=== PATIENT | female | born 1945 | race Hispanic/Latino ===

== ENCOUNTER 2019-08-19 05:53 | Inpatient (IN) | payer MEDICARE ==
[2019-08-19] MEDS ORDERED: ALBUTEROL INHALER 90MCG/INH IH ONE (06:06)
[2019-08-19] MEDS ORDERED: AZITHROMYCIN 500MG+NS 250ML 250 ML IV ONE (06:35)
[2019-08-19] MEDS ORDERED: CEFTRIAXONE SODIUM 1 GM ONE (06:35)
[2019-08-19] MEDS ORDERED: METHYLPREDNISOLONE SOD SUCC 125MG/2ML VIAL ONE (06:35)
[2019-08-19 07:09] LABS: BASOPHILS % (AUTO) 0.9 % (0.0-5.0); EOSINOPHILS % (AUTO) 3.9 % (0.0-8.0); HEMATOCRIT 38.2 % (36-48); LYMPHOCYTES % (AUTO) 40.1 % (21.0-51.0); MEAN CORPUSCULAR HGB CONC 32.5 g/dL (32.0-36.0); MEAN CORPUSCULAR VOLUME 92.5 fL (79-99); MONOCYTES % (AUTO) 9.7 % (3.0-13.0); NEUTROPHILS % (AUTO) 44.9 % (40.0-77.0); PLATELET COUNT (AUTO) 213 K/uL (130-400); RED BLOOD CELL COUNT(AUTO) 4.13 MIL/uL (4.00-5.50); RED CELL DISTRIBUTION WIDTH 13.9 % (11.0-15.5); WHITE BLOOD COUNT (AUTO) 6.5 K/uL (4.8-10.8)
[2019-08-19 07:19] LABS: CREATININE 0.8 mg/dL (0.5-1.5); INR 0.95 (0.85-1.15); PARTIAL THROMBOPLASTIN TIME 23.8 SEC (26.3-35.5); POTASSIUM 3.6 mmol/L (3.5-5.1); PROTHROMBIN TIME 10.3 SEC (9.6-11.6)
[2019-08-19 07:25] LABS: BILIRUBIN,TOTAL 0.3 mg/dL (0.2-1.0); TOTAL PROTEIN, SERUM 7.5 g/dL (6.0-8.3)
[2019-08-19 07:27] LABS: ABG BASE EXCESS -0.6 mmol/L (-2.0-3.0); ABG HCO3 23.8 mmol/L (21.0-28.0); ABG OXYGEN SATURATION 96.5 % (95.0-99.0); ABG PCO2 38 mmHg (32-45)
[2019-08-19 07:29] LABS: ALBUMIN 3.6 g/dL (3.5-5.0)
[2019-08-19] MEDS ORDERED: ONDANSETRON HCL 4 MG/2 ML VIAL IV PRN (08:00)
[2019-08-19] MEDS ORDERED: HYDRALAZINE HCL 20 MG/ML VIAL IV PRN (08:00)
[2019-08-19] MEDS ORDERED: CEFTRIAXONE SODIUM 1 GM IV SCH (08:00)
[2019-08-19] MEDS ORDERED: LACTULOSE 20 GM/30 ML UDCUP PO PRN (08:00)
[2019-08-19] MEDS ORDERED: ACETAMINOPHEN 325 MG TAB PO PRN ×2 (08:00)
[2019-08-19] MEDS ORDERED: AZITHROMYCIN 500MG+NS 250ML 250 ML IV SCH (08:00)
[2019-08-19] MEDS ORDERED: GUAIFENESIN-DM 200/20 MG 10 ML PO PRN (08:00)
[2019-08-19 08:09] LABS: B-TYPE NATRIURETIC PEPTIDE 24 pg/mL (0-100)
[2019-08-19] MEDS ORDERED: METHYLPREDNISOLONE SOD SUCC 125MG/2ML VIAL IV SCH (09:00)
[2019-08-19] MEDS ORDERED: ENOXAPARIN SODIUM 40 MG/0.4 ML SYRINGE SQ SCH (09:00)
[2019-08-19 09:02] LABS: PHOSPHORUS 3.2 mg/dL (2.5-4.9)
[2019-08-19 09:41] LABS: APPEARANCE,URINE Clear (CLEAR); BILIRUBIN,URINE Negative (NEGATIVE); COLOR,URINE Yellow (YELLOW); GLUCOSE, URINE (UA) Negative (NEGATIVE); KETONES,URINE Negative (NEGATIVE); LEUKOCYTE ESTERASE ,URINE Negative (NEGATIVE); NITRATE,URINE Negative (NEGATIVE); OCCULT BLOOD,URINE Negative (NEGATIVE); PH,URINE 7.5 (5.0-8.0); PROTEIN,URINE Negative (NEGATIVE)
--- NOTE | 2019-08-19 10:49 | NUR ---
ED REPORT ED REPORT RECEIVED AT 1014 FROM [facility]. STATED AZITHROMCIN 500MG WAS GIVEN AT 0636; ROCEPHIN 1GM GIVEN AT 0636; AND SOLUMEDROL 125MG GIVEN AT 0636. 0900 ORDERS FOR THESE MEDS WERE CHARTED UNDER "ALREADY ADMINISTERED". PATIENT STILL PENDING TO ARRIVE TO UNIT.
[2019-08-19 11:30] VITALS: BP 139/84
--- NOTE | 2019-08-19 11:30 | NUR ---
PATIENT ARRIVED FROM ED PATIENT ARRIVED INTO 29 FROM ED AT THIS TIME. PATIENT IN STABLE CONDITION. VS: BP: 139/84, HR: 101; O2 SAT: 98% ON ROOM AIR; ORAL TEMP OF 98.1 ORAL. PATIENT HAS CLOTHING AND HER PHONE WITH HER AT BEDSIDE. SHE DENIES FEELING SHORT OF BREATH AT THIS TIME.
[2019-08-19] MEDS: FAMOTIDINE 20MG TAB 20 MG TAB PO SCH ×2 (11:46→20:49)
--- NOTE | 2019-08-19 12:25 | NUR ---
DR. KATHI ARMENTA MADE AWARE OF CONSULTATION, STATED HE WILL BE BY LATER TO ASSESS PATIENT.
--- NOTE | 2019-08-19 12:30 | NUR ---
DR. SHERI WADE AWARE OF CONSULTATION. HE IS CURRENTLY REVIEWING HER CHART.
[2019-08-19 16:25] VITALS: BP 144/85
--- NOTE | 2019-08-19 18:30 | NUR ---
DR. KATHI ARMENTA AT BEDSIDE TO SEE AND ASSESS PATIENT.
[2019-08-19 20:15] VITALS: BP 149/64
[2019-08-20 00:08] VITALS: BP 119/56
[2019-08-20 05:09] LABS: BASOPHILS % (AUTO) 0.3 % (0.0-5.0); EOSINOPHILS % (AUTO) 1.7 % (0.0-8.0); HEMATOCRIT 36.9 % (36-48); MEAN CORPUSCULAR HEMOGLOBIN 30.8 pg (27.0-33.0); MEAN CORPUSCULAR HGB CONC 33.1 g/dL (32.0-36.0); MEAN CORPUSCULAR VOLUME 93.2 fL (79-99); MONOCYTES % (AUTO) 9.5 % (3.0-13.0); NEUTROPHILS % (AUTO) 64.1 % (40.0-77.0); PLATELET COUNT (AUTO) 226 K/uL (130-400); RED BLOOD CELL COUNT(AUTO) 3.96 MIL/uL (4.00-5.50); RED CELL DISTRIBUTION WIDTH 14.1 % (11.0-15.5); WHITE BLOOD COUNT (AUTO) 10.8 K/uL (4.8-10.8)
[2019-08-20 05:17] LABS: CARBON DIOXIDE 26 mmol/L (21-32); CHLORIDE 105 mmol/L (101-111); CREATININE 0.9 mg/dL (0.5-1.5); GLOMERULAR FILTR. RATE CALC 65 mL/min (>60); GLUCOSE,RANDOM 109 mg/dL (70-105); LACTATE DEHYDROGENASE 163 U/L (81-234); POTASSIUM 3.9 mmol/L (3.5-5.1); SODIUM SERUM 140 mmol/L (136-145); UREA NITROGEN, BLOOD 17 mg/dL (7-18)
[2019-08-20 05:30] LABS: CRP QUANTITATIVE < 2.00 mg/L (0.00-9.0)
[2019-08-20 06:34] VITALS: BP 143/93
[2019-08-20] MEDS ORDERED: PREDNISONE 20 MG TABLET PO SCH (09:00)
[2019-08-20 09:08] VITALS: BP 153/74
[2019-08-20] MEDS ORDERED: PRED20B PO (09:37)
[2019-08-20] MEDS ORDERED: AZIT250T9 PO (09:37)
--- NOTE | 2019-08-20 11:03 | NUR ---
raúl pineda, samantha uploaded Addendum: 08/20/19 at 1104 by JOHNNA CAMARA RN CM Amended: Links added.
--- NOTE | 2019-08-20 11:05 | NUR ---
ATTEMPTED CALL TO JAMIE/ DAUGHTER /FACE SHEET NO ANSWER. ADVISED THAT PATIENT WILL BE DISCHARGED TODAY NO CM TRIGGERS, NO CONCERNS RAISED BY RN OR PATIENT WILL DEFER DETAILED CM ASSESSMENT PATIENT'S COVID RESULTS WILL BE FOLLOWED BY INFECTION CONTROL /COUNTY Addendum: 08/20/19 at 1106 by JOHNNA CAMARA RN CM Amended: Links added.
== END 2019-08-20 11:30 | disposition home or self-care (01) | DRG 192 ==
LOC: EDH 05:53 → EDHIP 07:58 → 2AH 10:16
PROVIDERS: ADMIT Internal Medicine; ATTEND Internal Medicine
DX: J44.1 Chronic obstructive pulmonary disease with (acute) exacerbation (principal); R53.81 Other malaise; Z20.828 Contact with and (suspected) exposure to other viral communicable diseases; E78.00 Pure hypercholesterolemia, unspecified; I10 Essential (primary) hypertension; Z87.891 Personal history of nicotine dependence; Z90.710 Acquired absence of both cervix and uterus
CPT/HCPCS: 36415; 36600; 71045; 80048; 80053; 81003; 82550; 82728; 82803; 83605; 83615; 83735; 83880; 84100; 84145; 84484; 85025; 85378; 85384; 85610; 85730; 86140; 87040; 87633; 87635; 87804; 93005; 99291; G0378; J0456; J0696; J1650; J2930

== ENCOUNTER 2020-03-28 22:17 | Emergency (ER) | payer MEDICARE ==
[~2020-03-28 22:17] MED LIST: AZIT250T9 PO; PRED20B PO
[2020-03-28] MEDS ORDERED: KETOROLAC TROMETHAMINE 30MG/ML ONE (22:48)
== END 2020-03-29 00:04 | disposition home or self-care (01) ==
LOC: EDH 22:17
DX: M79.9 Soft tissue disorder, unspecified (principal); E78.00 Pure hypercholesterolemia, unspecified; M79.7 Fibromyalgia
CPT/HCPCS: 96374; 99283; J1885

== ENCOUNTER 2021-02-17 09:43 | Emergency (ER) | payer MEDICARE ==
[~2021-02-17] VITALS: Ht 162.6 cm; Wt 68.0 kg
[2021-02-17 10:00] LABS: BASOPHILS % (AUTO) 0.3 % (0.0-5.0); EOSINOPHILS % (AUTO) 0.3 % (0.0-8.0); HEMATOCRIT 36.1 % (36-48); LYMPHOCYTES % (AUTO) 49.8 % (21.0-51.0); MEAN CORPUSCULAR HEMOGLOBIN 29.2 pg (27.0-33.0); MEAN CORPUSCULAR HGB CONC 31.9 g/dL (32.0-36.0); MEAN CORPUSCULAR VOLUME 91.6 fL (79-99); MONOCYTES % (AUTO) 13.7 % (3.0-13.0); NEUTROPHILS % (AUTO) 35.6 % (40.0-77.0); PLATELET COUNT (AUTO) 147 K/uL (130-400); RED BLOOD CELL COUNT(AUTO) 3.94 MIL/uL (4.00-5.50); RED CELL DISTRIBUTION WIDTH 14.4 % (11.0-15.5); WHITE BLOOD COUNT (AUTO) 2.9 K/uL (4.8-10.8)
[2021-02-17 10:12] LABS: CREATININE 0.7 mg/dL (0.5-1.5); POTASSIUM 3.4 mmol/L (3.5-5.1)
[2021-02-17 10:17] LABS: ALBUMIN 3.6 g/dL (3.5-5.0); BILIRUBIN,TOTAL 0.5 mg/dL (0.2-1.0); TOTAL PROTEIN, SERUM 7.3 g/dL (6.0-8.3)
[2021-02-17] MEDS ORDERED: AZITHROMYCIN 250 MG TABLET PO SCH (10:30)
[2021-02-17] MEDS ORDERED: D-ME118S47 PO (10:35)
[2021-02-17 11:33] VITALS: BP 121/74
[2021-02-17 11:52] LABS: BAND NEUTROPHILS % (MANUAL) 1 % (0-2); LYMPHOCYTES % (MANUAL) 49 % (22-44); MAN.DIFF COMMENT-IMPRESSION MANUAL DIFFERENTIAL; MONOCYTES % (MANUAL) 11 % (2-9); PLATELET MORPHOLOGY COMMENT ADEQUATE; REACTIVE LYMPHOCYTES 4 % (0-0); SEGMENTED NEUTROPHILS % 35 % (40-70)
== END 2021-02-17 11:31 | disposition home or self-care (01) ==
LOC: EDH 09:43
DX: U07.1 COVID-19 (principal); Z79.52 Long term (current) use of systemic steroids
CPT/HCPCS: 36415; 71045; 80053; 85025; 93005

== ENCOUNTER 2021-12-06 11:50 | Emergency (ER) | payer MEDICARE ==
[~2021-12-06] VITALS: Ht 152.4 cm; Wt 60.3 kg
[~2021-12-06 11:50] MED LIST changes: +D-ME118S47 PO
[2021-12-06 11:56] VITALS: BP 131/63
[2021-12-06] MEDS ORDERED: FAMOTIDINE 20MG TAB PO ONE (12:30)
[2021-12-06] MEDS ORDERED: HYDROCODONE/ACETAMINOPHEN 10/325 MG TAB PO ONE (12:30)
[2021-12-06] MEDS ORDERED: GABAPENTIN 300 MG CAPSULE PO SCH (12:30)
[2021-12-06] MEDS ORDERED: FAMC500T8 PO (12:35)
[2021-12-06] MEDS ORDERED: ACET-2247 PO (12:35)
[2021-12-06] MEDS ORDERED: GABA300C PO (12:35)
[2021-12-06] MEDS ORDERED: FAMO-136 PO (12:35)
== END 2021-12-06 13:20 | disposition home or self-care (01) ==
LOC: EDH 11:50
DX: B02.9 Zoster without complications (principal); E78.00 Pure hypercholesterolemia, unspecified; Z79.52 Long term (current) use of systemic steroids; Z79.899 Other long term (current) drug therapy; Z88.5 Allergy status to narcotic agent; Z88.8 Allergy status to other drugs, medicaments and biological substances

== ENCOUNTER 2021-12-06 16:59 | Emergency (ER) | payer MEDICARE ==
[~2021-12-06 16:59] MED LIST changes: +ACET-2247 PO; +FAMC500T8 PO; +FAMO-136 PO; +GABA300C PO
[2021-12-06 17:42] VITALS: BP 130/80
== END 2021-12-06 17:43 | disposition home or self-care (01) ==
LOC: EDH 16:59
DX: B02.9 Zoster without complications (principal); T42.6X5A Adverse effect of other antiepileptic and sedative-hypnotic drugs, initial encounter; Z79.52 Long term (current) use of systemic steroids; Z79.899 Other long term (current) drug therapy; Z88.5 Allergy status to narcotic agent; Z88.8 Allergy status to other drugs, medicaments and biological substances; Y92.89 Other specified places as the place of occurrence of the external cause

== ENCOUNTER 2022-01-12 15:07 | Emergency (ER) | payer MEDICARE ==
[~2022-01-12] VITALS: Ht 152.4 cm; Wt 52.2 kg
[2022-01-12] MEDS ORDERED: IBUPROFEN 600 MG TABLET ONE (15:34)
[2022-01-12] MEDS ORDERED: IBUPROFEN 600 MG TABLET PO ONE (16:00)
[2022-01-12 16:31] VITALS: BP 124/62
[2022-01-12] MEDS ORDERED: GABA600T10 PO (17:45)
[2022-01-12] MEDS ORDERED: IBUP-2077 PO (17:46)
== END 2022-01-12 18:31 | disposition home or self-care (01) ==
LOC: EDH 15:07
DX: B02.29 Other postherpetic nervous system involvement (principal); E78.00 Pure hypercholesterolemia, unspecified; M81.0 Age-related osteoporosis without current pathological fracture; Z88.5 Allergy status to narcotic agent; Z88.8 Allergy status to other drugs, medicaments and biological substances; Z79.1 Long term (current) use of non-steroidal anti-inflammatories (NSAID); Z79.52 Long term (current) use of systemic steroids; Z79.899 Other long term (current) drug therapy

== ENCOUNTER 2022-01-16 08:28 | Emergency (ER) | payer MEDICARE ==
[~2022-01-16] VITALS: Ht 152.4 cm; Wt 57.2 kg
[~2022-01-16 08:28] MED LIST changes: +GABA600T10 PO; +IBUP-2077 PO
[2022-01-16] MEDS ORDERED: [UNRECOGNIZED DRUG - CODE] TP (09:29)
[2022-01-16 09:41] VITALS: BP 141/60
== END 2022-01-16 09:54 | disposition home or self-care (01) ==
LOC: EDH 08:28
DX: B02.29 Other postherpetic nervous system involvement (principal); M19.90 Unspecified osteoarthritis, unspecified site; E78.00 Pure hypercholesterolemia, unspecified; Z98.890 Other specified postprocedural states; Z88.6 Allergy status to analgesic agent; Z79.899 Other long term (current) drug therapy
CPT/HCPCS: 36415

== ENCOUNTER 2022-02-09 09:21 | Emergency (ER) | payer MEDICARE ==
[~2022-02-09] VITALS: Ht 149.9 cm; Wt 45.4 kg
[~2022-02-09 09:21] MED LIST changes: +[UNRECOGNIZED DRUG - CODE] TP
[2022-02-09 10:02] LABS: BASOPHILS % (AUTO) 0.8 % (0.0-5.0); EOSINOPHILS % (AUTO) 2.5 % (0.0-8.0); HEMATOCRIT 33.5 % (36-48); LYMPHOCYTES % (AUTO) 32.3 % (21.0-51.0); MEAN CORPUSCULAR HEMOGLOBIN 28.2 pg (27.0-33.0); MEAN CORPUSCULAR HGB CONC 31.9 g/dL (32.0-36.0); MEAN CORPUSCULAR VOLUME 88.2 fL (79-99); MONOCYTES % (AUTO) 8.2 % (3.0-13.0); NEUTROPHILS % (AUTO) 55.8 % (40.0-77.0); PLATELET COUNT (AUTO) 270 K/uL (130-400); WHITE BLOOD COUNT (AUTO) 5.2 K/uL (4.8-10.8)
[2022-02-09 10:07] LABS: CREATININE 0.9 mg/dL (0.5-1.5); POTASSIUM 3.6 mmol/L (3.5-5.1)
[2022-02-09 10:12] LABS: ALBUMIN 3.8 g/dL (3.5-5.0); TOTAL PROTEIN, SERUM 7.6 g/dL (6.0-8.3)
[2022-02-09 10:19] LABS: INR 1.02 (0.85-1.15); PROTHROMBIN TIME 11.1 SEC (9.6-11.6)
[2022-02-09 10:20] LABS: PARTIAL THROMBOPLASTIN TIME 22.7 SEC (26.3-35.5)
[2022-02-09 10:37] LABS: B-TYPE NATRIURETIC PEPTIDE 18 pg/mL (0-100)
[2022-02-09 12:13] LABS: APPEARANCE,URINE CLOUDY (CLEAR); BILIRUBIN,URINE NEGATIVE (NEGATIVE); COLOR,URINE YELLOW (YELLOW); GLUCOSE, URINE (UA) NEGATIVE (NEGATIVE); KETONES,URINE 100 mg/dL (NEGATIVE); LEUKOCYTE ESTERASE ,URINE 75 Leu/uL (NEGATIVE); NITRATE,URINE 1+ (NEGATIVE); OCCULT BLOOD,URINE SMALL (NEGATIVE); PH,URINE 5.5 (5.0-8.0); PROTEIN,URINE 30 mg/dL (NEGATIVE)
[2022-02-09 12:20] LABS: BACTERIA,URINE FEW /HPF (None Seen); MUCUS,URINE FEW LPF (None Seen); SQUAMOUS EPITHELIAL CELL,UR RARE /HPF (0-2)
[2022-02-09] MEDS ORDERED: HYDROMORPHONE 0.5 MG SYG (0.5MG/0.5ML) IVP ONE (12:30)
[2022-02-09 13:45] VITALS: BP 128/72
== END 2022-02-09 14:08 | disposition home or self-care (01) ==
LOC: EDH 09:21
DX: S80.02XA Contusion of left knee, initial encounter (principal); S80.01XA Contusion of right knee, initial encounter; S80.12XA Contusion of left lower leg, initial encounter; S80.11XA Contusion of right lower leg, initial encounter; M54.2 Cervicalgia; M19.90 Unspecified osteoarthritis, unspecified site; E78.00 Pure hypercholesterolemia, unspecified; Z98.890 Other specified postprocedural states; M81.0 Age-related osteoporosis without current pathological fracture; Z79.899 Other long term (current) drug therapy; Z88.5 Allergy status to narcotic agent; Z88.6 Allergy status to analgesic agent; W19.XXXA Unspecified fall, initial encounter; Y93.89 Activity, other specified; Y92.89 Other specified places as the place of occurrence of the external cause; Y99.8 Other external cause status
CPT/HCPCS: 36415; 70450; 71045; 72125; 72170; 80053; 81001; 83880; 84484; 85025; 85610; 85730; 87077; 87088; 87186; 93005

== ENCOUNTER 2023-08-12 16:39 | Inpatient (IN) | payer MEDICARE ==
[~2023-08-12] VITALS: Ht 142.2 cm; Wt 47.6 kg
[~2023-08-12 16:39] MED LIST changes: +BROM118S48 PO; -D-ME118S47 PO
[2023-08-12 17:22] LABS: BASOPHILS # (AUTO) 0.06 K/uL (0.00-0.20); BASOPHILS % (AUTO) 1.1 % (0.0-5.0); EOSINOPHILS # (AUTO) 0.07 K/uL (0.00-0.70); EOSINOPHILS % (AUTO) 1.3 % (0.0-8.0); HEMATOCRIT 23.6 % (36-48); IMMATURE GRANULOCYTE ABSOLUTE 0.02 K/uL (0-1); LYMPHOCYTES % (AUTO) 36.3 % (21.0-51.0); MEAN CORPUSCULAR HEMOGLOBIN 20.9 pg (27.0-33.0); MEAN CORPUSCULAR VOLUME 74.7 fL (79-99); MONOCYTES # (AUTO) 0.5 K/uL (0.1-1.0); MONOCYTES % (AUTO) 9.7 % (3.0-13.0); NEUTROPHILS # (AUTO) 2.9 K/uL (1.8-7.7); NEUTROPHILS % (AUTO) 51.2 % (40.0-77.0); PLATELET COUNT (AUTO) 286 K/uL (130-400); RED BLOOD CELL COUNT(AUTO) 3.16 MIL/uL (4.00-5.50); WHITE BLOOD COUNT (AUTO) 5.6 K/uL (4.8-10.8)
[2023-08-12 17:27] LABS: CREATININE 0.7 mg/dL (0.5-1.0); POTASSIUM 3.4 mmol/L (3.5-5.1)
[2023-08-12 17:32] LABS: ALBUMIN 3.5 g/dL (3.5-5.0); BILIRUBIN,TOTAL 0.3 mg/dL (0.2-1.0); TOTAL PROTEIN, SERUM 7.2 g/dL (6.0-8.3)
[2023-08-12 17:45] LABS: APPEARANCE,URINE CLOUDY (CLEAR); BILIRUBIN,URINE NEGATIVE (NEGATIVE); COLOR,URINE YELLOW (YELLOW); GLUCOSE, URINE (UA) NEGATIVE (NEGATIVE); KETONES,URINE 5 mg/dL (NEGATIVE); LEUKOCYTE ESTERASE ,URINE 75 Leu/uL (NEGATIVE); NITRATE,URINE NEGATIVE (NEGATIVE); OCCULT BLOOD,URINE MODERATE (NEGATIVE); PH,URINE 5.5 (5.0-8.0); PROTEIN,URINE 20 mg/dL (NEGATIVE); UROBILINOGEN,URINE 0.2 mg/dL (0.2-1.0)
[2023-08-12 17:47] LABS: ADD UA MICROSCOPIC YES
[2023-08-12 17:51] LABS: BACTERIA,URINE MOD /HPF (None Seen); MUCUS,URINE RARE LPF (None Seen); RBC,URINE 51-100 /HPF (0-1); SQUAMOUS EPITHELIAL CELL,UR RARE /HPF (0-2); YEAST,URINE BUDDING RARE /HPF (None Seen)
[2023-08-12] MEDS: PANTOPRAZOLE 40 MG/VIAL IVP ONE (20:32)
[2023-08-12] MEDS ORDERED: CEFTRIAXONE 1G VIAL 1 GM in 0.9%NACL 50ML 50 ML IV SCH (23:00)
[2023-08-12] MEDS ORDERED: MAGNESIUM 2GM PREMIX 50ML 50 ML IV PRN (23:00)
[2023-08-12] MEDS ORDERED: ONDANSETRON 4MG INJ IV PRN (23:00)
[2023-08-12] MEDS: LACTATED RINGERS 1000ML 1,000 ML IV SCH (23:25)
[2023-08-12] MEDS: CEFTRIAXONE 1G VIAL IVPB SCH (23:25)
[2023-08-12 23:40] VITALS: O2SAT 97
[2023-08-13] VITALS (7 sets, daily range): BP systolic 100–129; BP diastolic 47–73; PULSE 67–87; RESP 18; O2SAT 98–99
[2023-08-13 01:53] LABS: HEMATOCRIT 25.3 % (36-48)
[2023-08-13 05:10] LABS: BASOPHILS # (AUTO) 0.06 K/uL (0.00-0.20); BASOPHILS % (AUTO) 1.1 % (0.0-5.0); EOSINOPHILS # (AUTO) 0.11 K/uL (0.00-0.70); HEMATOCRIT 24.4 % (36-48); IMMATURE GRANULOCYTE ABSOLUTE 0.01 K/uL (0-1); LYMPHOCYTES # (AUTO) 1.7 K/uL (1.0-4.8); LYMPHOCYTES % (AUTO) 31.8 % (21.0-51.0); MEAN CORPUSCULAR HEMOGLOBIN 22.9 pg (27.0-33.0); MEAN CORPUSCULAR HGB CONC 30.3 g/dL (32.0-36.0); MEAN CORPUSCULAR VOLUME 75.5 fL (79-99); MONOCYTES # (AUTO) 0.6 K/uL (0.1-1.0); MONOCYTES % (AUTO) 11.6 % (3.0-13.0); NEUTROPHILS # (AUTO) 2.9 K/uL (1.8-7.7); NEUTROPHILS % (AUTO) 53.3 % (40.0-77.0); PLATELET COUNT (AUTO) 223 K/uL (130-400); RED BLOOD CELL COUNT(AUTO) 3.23 MIL/uL (4.00-5.50); RED CELL DISTRIBUTION WIDTH 20.6 % (11.0-15.5); WHITE BLOOD COUNT (AUTO) 5.4 K/uL (4.8-10.8)
[2023-08-13 05:22] LABS: INR 0.96 (0.85-1.15); PROTHROMBIN TIME 11.4 SEC (9.6-11.6)
[2023-08-13 05:23] LABS: PARTIAL THROMBOPLASTIN TIME 23.5 SEC (26.3-35.5)
[2023-08-13 05:30] LABS: ALBUMIN 2.8 g/dL (3.5-5.0); BILIRUBIN,TOTAL 1.5 mg/dL (0.2-1.0); CREATININE 0.5 mg/dL (0.5-1.0); POTASSIUM 3.6 mmol/L (3.5-5.1); TOTAL PROTEIN, SERUM 6.1 g/dL (6.0-8.3)
[2023-08-13] MEDS: PANTOPRAZOLE 40 MG/VIAL IVP SCH (08:54)
[2023-08-13 11:33] LABS: RETICULOCYTE % (AUTO) 0.91 % (0.42-2.23)
[2023-08-13 12:14] LABS: % IRON SATURATION 88.5 % (22-44)
[2023-08-14] VITALS: BP 118/59; PULSE 66; RESP 18
[2023-08-14 04:00] VITALS: BP_SYST 112; BP_SYST 113; BP_DIAS 57; BP_DIAS 72; PULSE 68; RESP 18
[2023-08-14 05:11] LABS: HEMATOCRIT 25.4 % (36-48); MEAN CORPUSCULAR HGB CONC 30.3 g/dL (32.0-36.0); MEAN CORPUSCULAR VOLUME 75.8 fL (79-99); RED BLOOD CELL COUNT(AUTO) 3.35 MIL/uL (4.00-5.50); RED CELL DISTRIBUTION WIDTH 21.2 % (11.0-15.5); WHITE BLOOD COUNT (AUTO) 3.6 K/uL (4.8-10.8)
[2023-08-14 05:36] LABS: CREATININE 0.5 mg/dL (0.5-1.0); POTASSIUM 3.3 mmol/L (3.5-5.1)
[2023-08-14] MEDS: POTASSIUM CHLORIDE 20MEQ/100ML 100 ML IV PRN (07:42)
[2023-08-14 08:36] VITALS: BP 104/53; PULSE 67; RESP 18
[2023-08-14 08:37] VITALS: O2SAT 98
[2023-08-14] MEDS: KCL 20 MEQ ERTAB PO ONE (11:47)
[2023-08-14 12:13] VITALS: BP 110/67; PULSE 64; RESP 18
[2023-08-14] MEDS ORDERED: LACT10SO5 PO (12:36)
[2023-08-14] MEDS ORDERED: CEPH500B PO (12:36)
[2023-08-14] MEDS ORDERED: PANT20TA18 PO (12:39)
[2023-08-14] MEDS ORDERED: CEFU500T67 PO (14:58)
== END 2023-08-14 15:20 | disposition home or self-care (01) | DRG 812 ==
LOC: EDH 16:39 → EDHIP 20:48 → UNDOADMOB 20:48 → EDHIP 22:37 → 3BH 23:01
PROVIDERS: ADMIT Hospitalist; ATTEND Hospitalist
PROC: 30233N1 Transfusion of Nonautologous Red Blood Cells into Peripheral Vein, Percutaneous Approach (ICD-10-PCS; principal; 2023-08-12)
DX: D50.9 Iron deficiency anemia, unspecified (principal); K92.2 Gastrointestinal hemorrhage, unspecified; N39.0 Urinary tract infection, site not specified; K59.00 Constipation, unspecified; E78.00 Pure hypercholesterolemia, unspecified; M81.0 Age-related osteoporosis without current pathological fracture; E87.6 Hypokalemia; R73.9 Hyperglycemia, unspecified; B96.29 Other Escherichia coli [E. coli] as the cause of diseases classified elsewhere; Z88.5 Allergy status to narcotic agent; Z90.710 Acquired absence of both cervix and uterus; Z88.8 Allergy status to other drugs, medicaments and biological substances
CPT/HCPCS: 36415; 80048; 80053; 81001; 82270; 82607; 82728; 83735; 85014; 85018; 85025; 85027; 85610; 85730; 86850; 86900; 86901; 86923; 87077; 87088; 87186; C9113; G0378; J0696; J3480; J7120; P9016